=== PATIENT | male | born 1975 | race Caucasian/White ===

== ENCOUNTER 2020-11-28 11:21 | Outpatient (REF) | payer BC, SELFPAY ==
[2020-11-28 14:16] LABS: SARS COV2 PCR INHOUSE NEGATIVE (Negative)
== END 2020-11-28 11:22 | disposition home or self-care (01) ==
LOC: HO.LAB 11:21
PROVIDERS: Visit Provider Internal Medicine
DX: Z20.822 Contact with and (suspected) exposure to COVID-19 (principal)
CPT/HCPCS: C9803; U0003

== ENCOUNTER 2021-05-03 15:11 | Emergency (ER) | payer OTHER, BC, SELFPAY ==
--- NOTE | ~2021-05-03 | XR_ITS ---
EXAMINATION: XR KNEE, LEFT CLINICAL INFORMATION: Fall COMPARISON: None TECHNIQUE: Four views of the left knee. FINDINGS: No fracture, dislocation, or joint effusion. There is enthesopathy of the distal quadriceps tendon attachment on the patella. XR/XR knee LT 4V IMPRESSION: No acute osseous abnormality.
[2021-05-03 15:18] VITALS: BP 123/79; PULSE 79; RESP 16; TEMP 36.9; O2SAT 98; BMI 33.1
--- NOTE | 2021-05-03 16:20 | ED_ITS ---
HPI - Extremity Injury (Lower) General Chief Complaint: Extremity Injury, Lower Stated Complaint: work inj Source: patient Mode of arrival: ambulatory Limitations: language barrier History of Present Illness HPI Narrative: 46-year-old male presents with left knee injury sustained at work. Stated that he hit his knee against ladder. complaint: knee injury Onset (ago): hour(s) (Within the hour of arrival) Type of Injury: blunt Place: work Severity: moderate Severity scale (1-10): 6 Relieving factors: nothing Exacerbating factors: weight bearing and palpation Context: direct blow Associated symptoms: ambulatory Other symptoms: none Treatments prior to arrival: cold therapy Related Data Allergies Allergy/AdvReac Type Severity Reaction Status Date / Time No Known Allergies Allergy Unverified 05/10/20 18:35 Review of Systems Review of Systems: Constitutional: No Fever, No Chills ENT/Mouth: No Ear Pain, No Hoarseness, No sore throat Eyes: No Eye Pain, No Swelling, No Redness, No Foreign Body Cardiovascular: No Chest Pain, No SOB Respiratory: No Cough, No Dyspnea Gastrointestinal: No Nausea, No Vomiting, No Diarrhea, No abdominal Pain Genitourinary: No Dysuria, No Hematuria Musculoskeletal: positive left knee pain, No Myalgias, No Joint Swelling Skin: No Skin lacerations, No rash Neuro: No Weakness, No Numbness, No Paresthesias, No Loss of Consciousness, No Dizziness, No Headache Psych: No Anxiety/Panic, No Depression Heme/Lymph: no easy bruising, no Lymphadenopathy Endocrine: No Polyuria, No Polydipsia Yes all other systems are reviewed and are negative [facility] Past Medical History Attestation statement: The following information was validated with the patient. Source: old records reviewed Social History Social History Advance Directives: No Advance Directives Information Provided: Yes Physical Exam Vital Signs: Vital Signs: Last Vital Signs Temp 98.5 F 05/03/21 15:18 Pulse 79 05/03/21 15:18 Resp 16 05/03/21 15:18 BP 123/79 05/03/21 15:18 Pulse Ox 98 05/03/21 15:18 Body Mass Index 33.1 Appearance: Alert. Oriented X3. No acute distress. Eyes: Pupils equal, round and reactive to light. ENT: Pharynx normal. Neck: Normal inspection. Neck supple. CVS: Normal heart rate and rhythm. Pulses normal. Respiratory: No respiratory distress. Breath sounds normal. Abdomen: Soft and nontender. Skin: Skin warm and dry. Normal skin color. Normal skin turgor. Extremities: Full range of motion, strength 5/5, tenderness to the patella on the left side, no appreciable swelling bruising redness or malformation. Pulses equal to both extremities. Brisk capillary refill. Neuro: No motor deficit. No sensory deficit. Cranial nerves 2-12 intact. Course Course Course Narrative: 46-year-old male presents with left knee pain after hitting up against a ladder while at work. X-rays are pending. He does have full range of motion, no visible injury or malformation noted. X-rays negative for acute findings. Plan of care is for patient to follow-up with were connection. Patient verbalizes understanding of and agrees plan of care discharge home. cross country/track and field coach utilized for all correspondence, Google translate utilized for discharge instructions. MDM - Extremity Injury (Lower) MDM Narrative Medical decision making narrative: Contusion, hematoma Differential Diagnosis Differential diagnosis: Likely acute internal derangement of knee Medical Records Attestation: I reviewed the patient's medical records. Imaging Data Left knee x-ray: Attestation: I personally reviewed and interpreted this imaging study as follows: Radiologist's impression: EXAMINATION: XR KNEE, LEFT CLINICAL INFORMATION: Fall? COMPARISON: None? TECHNIQUE: Four views of the left knee. FINDINGS: No fracture, dislocation, or joint effusion. There is enthesopathy of the distal quadriceps tendon attachment on the patella.? XR/XR knee LT 4V IMPRESSION: No acute osseous abnormality. Discharge Plan Discharge Clinical Impression: Acute knee pain, Contusion Patient Disposition: Home, Self-Care Instructions: Contusion in Adults (ED), Knee Pain (ED) Additional Instructions: Se le evalu? por dolor en la rodilla izquierda despu?s de dario lesi?n relacionada con el trabajo. Ro radiograf?as son negativas para los hallazgos agudos que requieren dario intervenci?n urgente. Everett un seguimiento con la conexi?n laboral si los s?ntomas persisten. Use Tylenol y Motrin seg?n sea necesario para controlar el dolor. Hielo, eleve y descanse la rodilla para ayudar a reducir el dolor y la hinchaz?n. Abiodun por elegir ford departamento de emergencias para siegel evaluaci?n. Everett un seguimiento con siegel m?dico de atenci?n primaria seg?n sea necesario. Regrese al departamento de emergencias por cualquier s?ntoma nuevo, preocupante o que empeore. You were evaluated for left knee pain after work related injury. Her x-rays are negative for acute findings requiring emergent intervention. Please follow up with work connection if symptoms persist. Use Tylenol and Motrin as needed for pain management. Ice, elevate and rest the knee to help reduce pain and swelling. Thank you for choosing this emergency department for evaluation. Please follow-up with primary care physician as needed. Return to the emergency department for any new, concerning, or worsening symptoms. Referrals: [facility] [Provider Group] - 2 days (Left knee pain) Stand Alone Forms: Work/School Release Interventions: ED Discharge Assessment Last Done: 05/03/21 16:34 Discharge Date/Time: 05/03/21 16:35
== END 2021-05-03 16:35 | disposition home or self-care (01) ==
PROVIDERS: Emergency Provider Emergency Medicine Emergency Medical Services
DX: S80.02XA Contusion of left knee, initial encounter (principal); M25.562 Pain in left knee; Y29.XXXA Contact with blunt object, undetermined intent, initial encounter; Y93.9 Activity, unspecified; Y92.9 Unspecified place or not applicable; Y99.9 Unspecified external cause status
CPT/HCPCS: 73564; 99283

== ENCOUNTER 2021-11-16 08:56 | Emergency (ER) | payer SELFPAY ==
[2021-11-16 08:58] VITALS: BP 151/86; PULSE 80; RESP 19; TEMP 36.6; O2SAT 98; BMI 30.8
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
== END 2021-11-16 09:39 | disposition home or self-care (01) ==
LOC: HO.ED 09:25
PROVIDERS: Emergency Provider Emergency Medicine
DX: S16.1XXA Strain of muscle, fascia and tendon at neck level, initial encounter (principal); V43.52XA Car driver injured in collision with other type car in traffic accident, initial encounter; Y93.89 Activity, other specified; Y92.414 Local residential or business street as the place of occurrence of the external cause; Y99.9 Unspecified external cause status
CPT/HCPCS: 99283

== ENCOUNTER 2024-09-14 05:05 | Emergency (ER) | payer SELFPAY ==
[2024-09-14] VITALS (7 sets, daily range): BP systolic 118–127; BP diastolic 71–85; PULSE 67–87; RESP 16–18; TEMP 36.3–37; O2SAT 96–98; BMI 34.4
--- NOTE | 2024-09-14 | ECG_ITS ---
Test Reason : dizziness Blood Pressure : */* mmHG Vent. Rate : 75 BPM Atrial Rate : 75 BPM P-R Int : 156 ms QRS Dur : 94 ms QT Int : 372 ms P-R-T Axes : 54 -24 26 degrees QTcB Int : 415 ms Normal sinus rhythm Low voltage QRS Borderline ECG No previous ECGs available Referred By: Generic ED Physician Electronically Signed By: ADRI SEALS MD
--- NOTE | ~2024-09-14 | CT_ITS ---
EXAMINATION: CT HEAD WITHOUT CONTRAST CLINICAL INFORMATION: Dizziness COMPARISON: None available. TECHNIQUE: Contiguous axial imaging was performed from the skull base to vertex without intravenous administration of contrast. This CT examination was performed using dose optimization techniques as appropriate, variously including the following: *Automated exposure control *Adjustment of mA and/or kV according to patient size (this includes techniques or standardized protocols for targeted exams where dose is matched to indication/reason for exam; i.e. extremities or head) *Use of iterative reconstruction technique DLP: 706 mGy/cm. FINDINGS: There is no acute intra-axial, extra-axial bleed, masses or midline shift. There is no acute infarction evolution. There is no edema. Sorensen to white matter differentiation is maintained normal. The lateral ventricles are symmetrical in size and configuration with mild enlargement. Bone windows reveal no calvarial abnormality. There is no scalp soft tissue abnormality. Bilateral paranasal sinuses and mastoid air cells are well-aerated. Small polyp or retention cyst seen in left maxillary sinus. CT/CT head/brain wo IV con IMPRESSION: No acute intracranial process seen. Electronically signed by: Darron Arredondo MD 09/14/2024 12:41 PM EST
--- NOTE | ~2024-09-14 | XR_ITS ---
CLINICAL HISTORY: cough 1 view chest x-ray Comparison: None Findings: No consolidation or effusion. Normal size heart. No acute fracture. IMPRESSION: 1. No acute findings. This document has been electronically signed by: Nimco Cisneros on 09/14/2024 06:28:59
[2024-09-14 05:35] LABS: MANUAL DIFF FLAG NO
[2024-09-14 05:36] LABS: Basophils Percent Auto 0.5 % (0-2); Eosinophils Absolute Auto 0.2 X10*3/uL (0.0-0.4); Eosinophils Percent Auto 2.7 % (0-4); Hemoglobin 14.4 g/dl (14.0-18.0); Imm Gran Abs Auto 0.01 X10*3/uL (0.00-0.03); Imm Gran Pct Auto 0.2 % (0.0-0.4); Lymphocytes Absolute Auto 1.9 X10*3/uL (1.2-4.9); Mean Corpuscular HGB Conc 34.3 g/dl (31.0-36.0); Mean Corpuscular Volume 84.5 fL (80.0-98.0); Mean Platelet Volume 12.1 fL (9.4-12.4); Monocytes Absolute Auto 0.4 X10*3/uL (0.1-1.2); Monocytes Percent Auto 6.5 % (2-11); Neutrophils Absolute Auto 3.5 x10*3/uL (2.0-8.3); Neutrophils Percent Auto 59.1 % (45-73); Platelet Count 167 X10*3/uL (160-400); Red Blood Count 4.97 X10*6/uL (4.60-5.80); Red Cell Distribution Width 12.5 % (11.0-16.0)
[2024-09-14 05:51] LABS: Alanine Aminotransferase 34 U/L (0-40); Albumin Level 4.2 g/dL (3.5-5.0); Alkaline Phosphatase 73 U/L (39-117); Anion Gap 11 (12-20); Aspartate Amino Transferase 25 U/L (5-37); Bilirubin Total 0.8 mg/dL (0.0-1.0); Blood Urea Nitrogen 16 mg/dL (9-16); Calcium 9.5 mg/dL (8.4-10.2); Carbon Dioxide 24 mmol/L (22-29); Chloride 110 mmol/L (96-108); Creatinine Clr Calc Pharmacy 94.5; Estimated Glomerular Filt Rate > 60; Glucose Random 89 mg/dL (60-115); Sodium 141 mmol/L (135-145); Total Protein 7.2 g/dL (6.5-8.0)
[2024-09-14 05:56] LABS: Troponin-I High Sensitivity < 2.7 ng/L (<3.5-35.0)
[2024-09-14 06:12] LABS: Influenza A PCR NEGATIVE (Negative); Influenza B PCR NEGATIVE (Negative); Resp Syncy Virus RNA Qual PCR NEGATIVE (Negative); SARS COV2 PCR INHOUSE NEGATIVE (Negative)
[2024-09-14] MEDS: Acetaminophen 325 MG TABLET 650 MG PO (08:46)
--- NOTE | 2024-09-14 10:21 | ED_ITS ---
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 He reports room spinning sensation, primarily when he enters his work facility. 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 His dizziness is also exacerbated with head movements. His symptoms seem to improve when he returns home and will eventually completely resolve. He states he rarely wears PPE while at work. 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 Denies difficulty ambulating. Denies headache, vision changes, neck pain, chest pain, palpitations, sob, N/V/D. Denies hx of VTE. no hx of vertigo. Related Data Previous Rx's ?Medication ?Instructions ?Recorded cyclobenzaprine 10 mg tablet 10 mg PO TID PRN muscle spasm #14 11/16/21 tabs ibuprofen 600 mg tablet 600 mg PO Q8H PRN pain #14 tabs 11/16/21 lidocaine 5 % topical patch 1 patch topical DAILY #15 ea 11/16/21 Allergies Allergy/AdvReac Type Severity Reaction Status Date / Time No Known Allergies Allergy Verified 09/14/24 05:09 [facility] Social History Social History Advance Directives: No Advance Directives Information Provided: Yes Do you have a plan to hurt others: No Plan Physical Exam ED Vital Signs: Vital Signs - 24 hr 09/14/24 05:07 09/14/24 08:43 09/14/24 11:41 Temperature 98.3 F 97.3 F 97.8 F Pulse Rate 86 78 67 Respiratory Rate 16 16 18 Blood Pressure 122/80 126/71 118/85 Pulse Oximetry 98 98 98 Oxygen Delivery Method Room Air Room Air Room Air 09/14/24 14:51 09/14/24 15:01 09/14/24 15:02 Temperature 98.6 F Pulse Rate 77 73 87 Respiratory Rate 16 Blood Pressure 121/75 127/75 119/81 Pulse Oximetry 96 Oxygen Delivery Method Room Air 09/14/24 15:04 Temperature Pulse Rate 85 Respiratory Rate Blood Pressure 127/78 Pulse Oximetry Oxygen Delivery Method BMI result Body Mass Index 34.4 Vital signs stable General: Well appearing, in no acute distress. Skin: Warm, dry, intact. No rashes or lesions. Head: Normocephalic, atraumatic. EENT: Hearing is intact b/l. Conjunctiva clear. PERRLA. EOM intact. Moist mucous membranes.? Neck: Supple without LAD Cardiac: Chest wall symmetric. RRR Lungs: Normal respiratory effort without accessory muscle use. CTA bilaterally Abdomen: Soft, non-tender, non-distended Ext: Upper and lower extremities atraumatic, without tenderness, deformity, swelling or erythema. no calf tenderness. Neuro: AOx3. Normal speech. +fatigable, horizontal nystagmus. Strength 5/5 intact throughout. Sensation intact to light touch. NV intact distally. finger to nose and heel to mcintosh intact. Ambulating with steady gait. Psych: Appropriate mood and affect. Responds appropriately to questions. Course Course Course Narrative: CBC without leukocytosis or left shift. no anemia, h&h stable. chemistry without acute electrolyte abnormality requiring intervention. no tereso. normal liver function. troponin undetectable. ekg showing normal sinus rhythm. no acute ischemic changes or st elevations. tsh wnl. negative for covid, flu, rsv. cxr without infiltrate or consolidation to suggest pneumonia. CT head w/o acute intracranial abnormality. orthostatic vital signs negative. > I spoke with Nicholas from poison control. he did not recommend further work up. given exposure to propane gas, recommending symptomatic care at this time. recommending PPE at work and patient removing himself from the environment if he becomes symptomatic again. > patient treated w/ meclizine and IVF. on re-evaluation, he states his dizziness has significantly improved. given horizontal nystagmus on exam w/ improvement following meclizine administration, I have a strong suspicion for peripheral vertigo. will send a trial of meclizine to pharmacy. advised to stay adequately hydrated and f/u w/ pcp. > i discussed all recommendations made by poison control. he verbalizes understanding. Patient has remained stable throughout ED visit today. Discussed worrisome signs and symptoms and when to return to the ED. All questions answered at this time. Patient is agreeable with disposition and stable for discharge. Medications Administered Discontinued Medications Generic Name Dose Route Start Last Admin Trade Name Daisy PRN Reason Stop Dose Admin Acetaminophen 650 mg 09/14/24 08:43 09/14/24 08:46 Acetaminophen 325 Mg Tablet PO 09/14/24 08:44 650 mg ONCE ONE Administration Sodium Chloride 1,000 mls @ 999 mls/hr 09/14/24 14:45 09/14/24 15:29 Ns IV 09/14/24 15:45 999 mls/hr .Q1H1M AUGUSTINA Administration Meclizine HCl 25 mg 09/14/24 11:05 09/14/24 11:28 Meclizine Hcl 25 Mg Tablet PO 09/14/24 11:06 25 mg ONCE ONE Administration Medical Decision Making Medical Decision Making [facility] Narrative: 49 year old [place] African speaking male with no significant pmhx presents to the ED today for evaluation of dizziness intermittently x months. Vital signs are stable. He is nontoxic appearing and in NAD. Pacing around exam room upon my entrance. His exam is nonfocal. NIH 0. cerebellum is intact. he is ambulating with steady gait. There is noted fatigable nystagmus. Differential diagnoses includes: anemia, electrolyte abnormality, dehydration, arrhythmia, workplace exposure, orthostatic hypotension, BPPV vs labrynthitis. No red flag features for central vertigo to include gradual onset, vertical/bidirectional or nonfatigable nystagmus, focal neurologic findings on exam (including inability to ambulate). Presentation not consistent with an acute POWDER SHOVELER infection, vertebral basilar artery insufficiency, cerebellar hemorrhage or infarction,?intracranial mass or bleed, temporal lobe epilepsy,?MS, trauma, complex migraine headache. Other acute, emergent causes of vertigo are unlikely given at this time. Labs/ viral swabs/ ekg/ cxr obtained prior to my assumption of care. Will add on TSH, orthostatic vitals, and dry ct head. Will trial meclizine and IVF. Call placed to poison control for recommendation. Differential Diagnosis Differential Diagnoses: The differential diagnosis associated with the presentation includes as above. Admission/Observation not indicated. Lab Data [facility] Lab Attestation statement: I reviewed the patient's lab results. as above. 09/14/24 05:30 09/14/24 05:30 Labs: Lab Results 09/14/24 09/14/24 Range/Units 05:29 05:30 WBC 6.0 (4.8-10.8) X10*3/uL RBC 4.97 (4.60-5.80) X10*6/uL Hgb 14.4 (14.0-18.0) g/dl Hct 42.0 (42.0-52.0) % MCV 84.5 (80.0-98.0) fL MCH 29.0 (27.0-33.0) pg MCHC 34.3 (31.0-36.0) g/dl RDW 12.5 (11.0-16.0) % Plt Count 167 (160-400) X10*3/uL MPV 12.1 (9.4-12.4) fL Immature Gran % (Auto) 0.2 (0.0-0.4) % Neut % (Auto) 59.1 (45-73) % Lymph % (Auto) 31.0 (20-40) % [place] % (Auto) 6.5 (2-11) % Eos % (Auto) 2.7 (0-4) % Baso % (Auto) 0.5 (0-2) % Lymph # (Auto) 1.9 (1.2-4.9) X10*3/uL [place] # (Auto) 0.4 (0.1-1.2) X10*3/uL Eos # (Auto) 0.2 (0.0-0.4) X10*3/uL Baso # (Auto) 0.0 (0.0-0.2) X10*3/uL Abs Immat Gran (auto) 0.01 (0.00-0.03) X10*3/uL Absolute Neuts (auto) 3.5 (2.0-8.3) x10*3/uL Absolute Nucleated RBC 0.000 (0.0-0.012) X10*3/uL Nucleated RBC % (auto) 0.0 (0.0-0.2) /100WBC Sodium 141 (135-145) mmol/L Potassium 4.0 (3.3-5.1) mmol/L Chloride 110 H (96-108) mmol/L Carbon Dioxide 24 (22-29) mmol/L Anion Gap 11 L (12-20) BUN 16 (9-16) mg/dL Creatinine 1.04 (0.5-1.4) mg/dL Estim Creat Clear Calc 94.5 Estimated GFR > 60 Random Glucose 89 (60-115) mg/dL Calcium 9.5 (8.4-10.2) mg/dL Total Bilirubin 0.8 (0.0-1.0) mg/dL AST 25 (5-37) U/L ALT 34 (0-40) U/L Alkaline Phosphatase 73 (39-117) U/L Troponin I High Sens < 2.7 (<3.5-35.0) ng/L Total Protein 7.2 (6.5-8.0) g/dL Albumin 4.2 (3.5-5.0) g/dL TSH 1.95 (0.32-4.0) uIU/mL Influenza Type A (PCR) NEGATIVE (Negative) Influenza Type B (PCR) NEGATIVE (Negative) RSV RNA Qual (PCR) NEGATIVE (Negative) SARS-CoV-2 RNA (RT-PCR) NEGATIVE (Negative) Independent Interpretation I performed an independent interpretation of an: EKG and Plain X-Ray Interpretation: CXR without infiltrate or consolidation CT head without bleed Radiology Impression Discussion of test interpretation with radiology: I have reviewed the radiologist's reading. Radiologist Impression: EXAMINATION: CT HEAD WITHOUT CONTRAST CLINICAL INFORMATION: Dizziness COMPARISON: None available. TECHNIQUE: Contiguous axial imaging was performed from the skull base to vertex without intravenous administration of contrast. This CT examination was performed using dose optimization techniques as appropriate, variously including the following: *Automated exposure control *Adjustment of mA and/or kV according to patient size (this includes techniques or standardized protocols for targeted exams where dose is matched to indication/reason for exam; i.e. extremities or head) *Use of iterative reconstruction technique DLP: 706 mGy/cm. FINDINGS: There is no acute intra-axial, extra-axial bleed, masses or midline shift. There is no acute infarction evolution. There is no edema. Sorensen to white matter differentiation is maintained normal. The lateral ventricles are symmetrical in size and configuration with mild enlargement. Bone windows reveal no calvarial abnormality. There is no scalp soft tissue abnormality. Bilateral paranasal sinuses and mastoid air cells are well-aerated. Small polyp or retention cyst seen in left maxillary sinus. CT/CT head/brain wo IV con IMPRESSION: No acute intracranial process seen. Electronically signed by: Darron Arredondo MD 09/14/2024 12:41 PM EST RP Procedure(s): XR chest 1V Accession Number(s): [id number] cc: Generic ED Physician; Physician,None ~ CLINICAL HISTORY: cough 1 view chest x-ray Comparison: None Findings: No consolidation or effusion. Normal size heart. No acute fracture. IMPRESSION: 1. No acute findings. This document has been electronically signed by: Nimco Cisneros on 09/14/2024 06:28:59 External Record Review External record reviewed: Inpatient record Prescription Management I considered prescription management with: Other (meclizine) Social Determinants Patient?s care significantly limited by Social Determinants of Health including: Other Social Determinant of Health Critical Care Time Critical Care Time Critical Care Time: No Discharge Plan Discharge Clinical Impression: Dizziness Patient Disposition: Home, Self-Care Instructions: Meclizine (By mouth), Dizziness (ED) Additional Instructions: You were evaluated in the ED today for dizziness. Your blood work is reassuring. The CT of your head is normal. Poison control was contacted and they are recommending supportive care at this time. As discussed, please wear PPE while at work. If you experience these symptoms while at work, immediately remove yourself from the environment. Your symptoms improved with medications and fluids today. I have sent meclizine to your pharmacy for you to take as needed for dizzinesss. Please follow up with your PCP. Return with any new or worsening symptoms. In the case of an emergency call 911. Prescriptions: No Action cyclobenzaprine 10 mg tablet 10 mg PO TID PRN (Reason: muscle spasm) Qty: 14 0RF ibuprofen 600 mg tablet 600 mg PO Q8H PRN (Reason: pain) Qty: 14 0RF lidocaine 5 % adhesive patch,medicated 1 patch topical DAILY Qty: 15 0RF Rx Instructions: leave on most painful area for up to 12 hrs Stand Alone Forms: Work/School Release Discharge Date/Time: 09/14/24 16:52 Print Language: [place] African
[2024-09-14] MEDS: Meclizine HCl 25 MG TABLET PO (11:28)
[2024-09-14 11:33] LABS: TSH reflex Free T4 1.95 uIU/mL (0.32-4.0)
[2024-09-14] MEDS: 0.9 % Sodium Chloride 1,000 ML 999 ML IV (15:29)
== END 2024-09-14 16:52 | disposition home or self-care (01) ==
PROVIDERS: Physician Assistant Medical; Emergency Provider Emergency Medicine
DX: R42 Dizziness and giddiness (principal); R11.2 Nausea with vomiting, unspecified; R05.9 Cough, unspecified; R94.31 Abnormal electrocardiogram [ECG] [EKG]; Z79.899 Other long term (current) drug therapy; Z03.818 Encounter for observation for suspected exposure to other biological agents ruled out
CPT/HCPCS: 0241U; 36415; 70450; 71045; 80053; 84443; 84484; 85025; 93005; 99284

== ENCOUNTER → 2024-09-14 05:28 | Outpatient (BNV) | payer SELFPAY | PROVIDERS: Visit Provider Internal Medicine Cardiovascular Disease | DX: R42 Dizziness and giddiness (principal) | CPT/HCPCS: 93010 ==

== ENCOUNTER → 2024-09-14 06:00 | Outpatient (BNV) | payer SELFPAY | PROVIDERS: Visit Provider Radiology Vascular & Interventional Radiology | DX: R42 Dizziness and giddiness (principal); R05.9 Cough, unspecified | CPT/HCPCS: 70450; 71045 ==